=== PATIENT | female | born 1980 | race Caucasian/White ===

== ENCOUNTER 2016-11-28 15:26 | Inpatient (IN) | payer OTHER ==
[~2016-11-28] VITALS: Ht 160 cm; Wt 82.4 kg
[2016-11-28] MEDS ORDERED: PRENAT PO (15:57)
[2016-11-28] MEDS ORDERED: FERR236T PO (15:58)
[2016-11-28 15:59] VITALS: BP 169/102; PULSE 86; RESP 18
--- NOTE | 2016-11-28 16:33 | RADRPT ---
PROCEDURE: US OB biophysical profile. CLINICAL INDICATION: decreased movements, contractions TECHNIQUE: Multiple sonographic images of the pelvis were obtained. The images were reviewed on a PACS workstation. COMPARISON: No prior studies are available for comparison. FINDINGS: There is a single viable intrauterine gestation. Cardiac activity is present with 156 beats per min yurok. There is a vertex presentation. The placenta is fundal. There is no evidence of placental abruption. There is a normal amount of amniotic fluid with an KENN = 11.9 cm. Biophysical profile: movement 2/2 tone 2/2. breathing 2/2 KENN 2/2 Total 03/23 RPTAT: AA . IMPRESSION: Normal biophysical profile. . .Tien Yao MD, Date Time Electronically viewed and signed by .Tien Yao MD, MD on 11/28/2016 16:32 .S/
--- NOTE | 2016-11-28 16:43 | HP ---
Date/Time of Note Date/Time of Note DATE: 11/28/16 TIME: 16:38 OB - History Hx of Present Chief Complaint: Low amniotic fluid as noted on outside ultrasound Last Menstrual Period: Jul 18, 2016 Estimated Due Date: December 24, 2016 : 5 Para: 3 Spontaneous : 1 Therapeutic : 0 Care: Limited Care Ultrasounds: Abnormal US findings (oligohydramnios) Obstetrical Complications: None Medical Complications: None Past Family/Social History * Past Medical, Surgical, Family and Obstetric Histories reviewed from chart. OB Admission Exam Vital Signs Vital Signs Vital Signs Date Time Temp Pulse Resp B/P Pulse Ox O2 Delivery O2 Flow Rate FiO2 11/28/16 15:59 98.5 86 18 169/102 97 Room Air Physical Exam HEENT: WNL Heart: Rhythm Normal Lungs: Clear Abdomen: WNL Extremities: Normal Reflexes: Normal Heart Rate: 140's Accelerations: Accelerations Present Decelerations: No Decelerations Varibility: Moderate OB Assessment/Plan Reason for admission: other (R/O preeclampsia, r/o oligohydramnios) Plan: Other (Admit, 24 hour urine collection, lab work OB ultrasound) SUDHA AUGUST MD Nov 28, 2016 16:43
--- NOTE | 2016-11-28 16:54 | RADRPT ---
PROCEDURE: US OB. CLINICAL INDICATION: Size and dates TECHNIQUE: Multiple sonographic images of the pelvis and gravid uterus were obtained. The images were reviewed on a PACS workstation. COMPARISON: No prior studies are available for comparison. FINDINGS: There is a single viable intrauterine gestation. Cardiac activity is present with 132 beats per min lawrence. There is a vertex presentation. The placenta is fundal. There is no evidence for an abruption or placenta previa. Measurements were made in order to determine age. The results are as follows: BPD =8.8 cm HC =31.5 cm AC =34 cm FL =6.9 cm Estimated gestational age of approximately 36 weeks and 1 day based on ultrasound measurements. Clinical age: 36 weeks and 2 days. The estimated date of delivery is 12/25/16, based on ultrasound measurements. The EFW = 3038 g, 67%, based on LMP age. RPTAT: AA IMPRESSION: Single viable intrauterine gestation of approximately 36 weeks and 1 day based on ultrasound measur ements. .Tien Yao MD, Date Time Electronically viewed and signed by .Tien Yao MD, on 11/28/2016 16:53 .S/
--- NOTE | 2016-11-28 17:27 | TRIAGE ---
OB Triage Datetime Report Generated by CPN: 11/28/2016 17:27 Datetime: 11/28/2016 17:23 Labor Evaluation Frequency: 0 Monitor Mode: External Pattern: Normal: <= 5 Contractions in 10 Minutes Resting Tone [place]: Relaxed Heart Rate FHR Baseline Rate: 135 Monitor Mode: External US FHR Baseline Changes: No Baseline Change Variability: Moderate 6-25 bpm Accelerations: 15X15 Decelerations: None Category: Category I Pain Assessment Pain Scale: 0 Pain Presence: None/Denies Pain Type: N/A Datetime: 11/28/2016 16:41 Monitor Mode: External Quality: Mild Pattern: Normal: <= 5 Contractions in 10 Minutes Resting Tone [place]: Relaxed Contraction Comments: IRRITABILITIES Heart Rate FHR Baseline Rate: 140 FHR Baseline Changes: No Baseline Change Variability: Moderate 6-25 bpm Accelerations: 15X15 Decelerations: None Datetime: 11/28/2016 16:00 Time of Arrival: 11/28/2016 15:20 EGA: 36.2 Arrived By: Ambulatory Arrived From: Dr. Hernández Chief Complaint: LOW KENN PER CLINIC; PT SENT WITHOUT PAPERWORK Movement: Present Contractions: Denies/Absent Rupture of Membranes: Denies Vaginal Bleeding: None Vaginal Discharge: Denies Recent Sexual Intercouse: Denies Abdominal Trauma: Not Applicable (Annotations: Data stored by N on behalf of user) Patient Complaints: None Time Provider Notified: 11/28/2016 16:05 Provider Notified: DR. AUGUST Initial Plan: EFM x2, ADMIT TO 2NE Datetime: 11/28/2016 15:48 Stage of : OB Triage Assessment Type: Triage Maternal Assessment Level of Consciousness: Fully Conscious Headache: Denies Blurred Vision: No Respiratory Effort: Unlabored; Regular Rhythm; Equal Expansion Breath Sounds, Left: Clear and Equal Breath Sounds, Right: Clear and Equal Nausea/Vomiting: Denies RUQ Epigastric Pain: Denies Lower Extremities Edema: None Degree: None Upper Extremities Edema: None Degree: None Facial Edema: None Temperature Route: Oral Fall Risk Assessment History of Falling: (0) No Secondary Diagnosis: (0) No Ambulatory Aid: (0) Bedrest/Nurse Assist IV Therapy: (0) No Gait: (0) Normal/Bedrest/Immobile Mental Status: (0) Oriented to Own Ability Fall Score: 0 Fall Risk Score Definition: No Risk: No action required
[2016-11-28 17:48] LABS: ADD SCAN DIFF NO
[2016-11-28 17:50] LABS: BASOPHILS % 0.3 % (0.0-2.0); EOSINOPHILS # 0.1 10^3/ul (0.0-0.5); EOSINOPHILS % 1.2 % (0.0-7.0); HEMATOCRIT 28.1 % (37.0-47.0); HEMOGLOBIN 8.6 g/dl (12.0-16.0); LYMPHOCYTES # 1.4 10^3/ul (0.8-2.9); LYMPHOCYTES % 19.9 % (15.0-51.0); MEAN CORPUSCULAR HEMOGLOBIN 22.9 pg (29.0-33.0); MEAN CORPUSCULAR HGB CONC 30.6 g/dl (32.0-37.0); MEAN CORPUSCULAR VOLUME 74.7 fl (82.0-101.0); MEAN PLATELET VOLUME 11.8 fl (7.4-10.4); MONOCYTE # 0.7 10^3/ul (0.3-0.9); MONOCYTES % 10.6 % (0.0-11.0); NEUTROPHIL # 4.6 10^3/ul (1.6-7.5); NEUTROPHILS % 67.4 % (39.0-77.0); PLATELET COUNT 160 10^3/UL (140-415); RED BLOOD COUNT 3.76 10^6/ul (4.20-5.40); RED CELL DISTRIBUTION WIDTH 17.6 % (11.5-14.5); WHITE BLOOD COUNT 6.8 10^3/ul (4.8-10.8)
[2016-11-28 17:54] LABS: ADD UMIC YES; URINE BILIRUBIN (Dip) NEGATIVE (NEGATIVE); URINE BLOOD (Dip) NEGATIVE (NEGATIVE); URINE GLUCOSE (Dip) NEGATIVE (NEGATIVE); URINE KETONES (Dip) NEGATIVE (NEGATIVE); URINE LEUKOCYTE ESTERASE (Dip) TRACE (NEGATIVE); URINE NITRITE (Dip) NEGATIVE (NEGATIVE); URINE TOTAL PROTEIN (Dip) NEGATIVE (NEGATIVE); URINE UROBILINOGEN (Dip) 0.2 E.U./dL (0.1-1.0)
[2016-11-28 17:54] LABS: POTASSIUM 3.5 mmol/L (3.5-5.1)
[2016-11-28 17:55] LABS: CREATININE 0.48 mg/dl (0.44-1.00)
[2016-11-28 17:56] LABS: ALBUMIN/GLOBULIN RATIO 0.88; TOTAL PROTEIN 6.4 g/dl (6.1-8.1); URIC ACID 4.6 mg/dl (3.1-7.9)
[2016-11-28 18:14] LABS: URINE COLOR YELLOW (YELLOW)
[2016-11-28 18:17] LABS: BACTERIA,URINE MODERATE; SQUAMOUS EPITHELIAL CELL,UR MODERATE
[2016-11-28 18:18] LABS: URINE RBCS NONE SEEN /HPF (0)
[2016-11-28 19:10] LABS: BARBITURATES Negative (NEGATIVE); BENZODIAZEPINES Negative (NEGATIVE); CANNABINOIDS Negative (NEGATIVE)
[2016-11-28 19:15] LABS: COCAINE Negative (NEGATIVE); OPIATES Negative (NEGATIVE)
[2016-11-29 07:37] LABS: ADD SCAN DIFF NO
[2016-11-29 07:42] LABS: ABNORMAL IP MESSAGE 1; BASOPHILS % 0.3 % (0.0-2.0); EOSINOPHILS # 0.2 10^3/ul (0.0-0.5); EOSINOPHILS % 1.9 % (0.0-7.0); HEMATOCRIT 26.7 % (37.0-47.0); HEMOGLOBIN 8.2 g/dl (12.0-16.0); LYMPHOCYTES # 1.7 10^3/ul (0.8-2.9); MEAN CORPUSCULAR HEMOGLOBIN 23.2 pg (29.0-33.0); MEAN CORPUSCULAR HGB CONC 30.7 g/dl (32.0-37.0); MEAN CORPUSCULAR VOLUME 75.4 fl (82.0-101.0); MONOCYTE # 0.7 10^3/ul (0.3-0.9); MONOCYTES % 8.9 % (0.0-11.0); NEUTROPHIL # 5.4 10^3/ul (1.6-7.5); NEUTROPHILS % 67.4 % (39.0-77.0); PLATELET COUNT 145 10^3/UL (140-415); RED BLOOD COUNT 3.54 10^6/ul (4.20-5.40); RED CELL DISTRIBUTION WIDTH 17.5 % (11.5-14.5)
[2016-11-29 08:10] LABS: ALBUMIN 2.9 g/dl (3.3-4.9)
[2016-11-29 08:11] LABS: POTASSIUM 3.7 mmol/L (3.5-5.1)
[2016-11-29 08:13] LABS: ALBUMIN/GLOBULIN RATIO 0.93; BILIRUBIN,INDIRECT 0.2 mg/dl (0-1.1); BILIRUBIN,TOTAL 0.2 mg/dl (0.2-1.3); CREATININE 0.49 mg/dl (0.44-1.00)
[2016-11-29 08:14] LABS: CALCIUM 8.4 mg/dl (8.4-10.2)
[2016-11-29] MEDS ORDERED: FERROUS GLUCONATE 236 MG PO SCH (09:00)
[2016-11-29] MEDS: MULTIVIT/MIN/FOLATE/IRON/PREN TAB PO SCH (12:51)
--- NOTE | 2016-11-29 15:33 | QN ---
Documentation Comment pt doing well no complained vss exam wnl iup 36 with elevated bp 24 hour pending continue care JAMES SMITH MD Nov 29, 2016 15:33
[2016-11-29 17:38] LABS: SCRET 0.49 mg/dl (0.44-1.00)
[2016-11-29] MEDS ORDERED: MAGNESIUM SULFATE 4 GM/100 ML 100 ML IVPB ONE (19:30)
[2016-11-29] MEDS: LACTATED RINGER'S 1,000 ML IV SCH (20:15)
[2016-11-29] MEDS: MAGNESIUM SULFATE 20 GM/500 ML 500 ML IV SCH (20:29)
[2016-11-29] MEDS ORDERED: LABETALOL 200 MG TAB PO SCH ×2 (21:00)
[2016-11-29] MEDS: LABETALOL 100 MG TAB PO SCH (21:12)
[2016-11-29 21:24] LABS: ADD SCAN DIFF NO
[2016-11-29 21:25] LABS: BASOPHILS % 0.1 % (0.0-2.0); EOSINOPHILS # 0.2 10^3/ul (0.0-0.5); EOSINOPHILS % 2.3 % (0.0-7.0); HEMATOCRIT 28.2 % (37.0-47.0); HEMOGLOBIN 8.7 g/dl (12.0-16.0); LYMPHOCYTES # 1.4 10^3/ul (0.8-2.9); LYMPHOCYTES % 19.2 % (15.0-51.0); MEAN CORPUSCULAR HGB CONC 30.9 g/dl (32.0-37.0); MEAN CORPUSCULAR VOLUME 74.4 fl (82.0-101.0); MEAN PLATELET VOLUME 11.2 fl (7.4-10.4); MONOCYTE # 0.8 10^3/ul (0.3-0.9); MONOCYTES % 11.3 % (0.0-11.0); NEUTROPHIL # 4.9 10^3/ul (1.6-7.5); NEUTROPHILS % 66.4 % (39.0-77.0); PLATELET COUNT 159 10^3/UL (140-415); RED BLOOD COUNT 3.79 10^6/ul (4.20-5.40); RED CELL DISTRIBUTION WIDTH 17.5 % (11.5-14.5); WHITE BLOOD COUNT 7.4 10^3/ul (4.8-10.8)
[2016-11-29 21:37] LABS: INR 0.91; PROTIME 12.3 Sec (12.2-14.2)
[2016-11-29 21:38] LABS: PARTIAL THROMBOPLASTIN TIME 24.7 Sec (25.0-35.0)
[2016-11-29] MEDS: BETAMET NA PHOS/AC(6 MG/ML) 5ML INJ IM SCH (21:40)
[2016-11-29 23:25] LABS: ALBUMIN/GLOBULIN RATIO 0.96; BILIRUBIN,INDIRECT 0.1 mg/dl (0-1.1); BILIRUBIN,TOTAL 0.1 mg/dl (0.2-1.3); CALCIUM 8.6 mg/dl (8.4-10.2); CREATININE 0.55 mg/dl (0.44-1.00); POTASSIUM 3.6 mmol/L (3.5-5.1); TOTAL PROTEIN 6.1 g/dl (6.1-8.1)
[2016-11-30] MEDS: LABETALOL 100 MG TAB PO SCH ×3 (06:00→22:07)
[2016-11-30] MEDS: LACTATED RINGER'S 1,000 ML IV SCH ×2 (06:01→19:04)
[2016-11-30] MEDS: MAGNESIUM SULFATE 20 GM/500 ML 500 ML IV SCH ×2 (06:05→17:06)
[2016-11-30] MEDS: MULTIVIT/MIN/FOLATE/IRON/PREN TAB PO SCH (08:56)
[2016-11-30] MEDS: FERROUS GLUCONATE (EC) 325 MG TAB PO SCH (08:56)
--- NOTE | 2016-11-30 19:50 | QN ---
Documentation Comment No complaint Afebrile VSS BP improved Strip Reactive Continue with present care. Perinatology consult. SUDHA AUGUST MD Nov 30, 2016 19:50
[2016-11-30] MEDS: BETAMET NA PHOS/AC(6 MG/ML) 5ML INJ IM SCH (21:42)
[2016-12-01] MEDS: MAGNESIUM SULFATE 20 GM/500 ML 500 ML IV SCH ×2 (02:39→11:30)
[2016-12-01] MEDS: LABETALOL 100 MG TAB PO SCH ×3 (05:47→22:09)
[2016-12-01] MEDS: LACTATED RINGER'S 1,000 ML IV SCH ×2 (09:06→21:07)
[2016-12-01] MEDS: MULTIVIT/MIN/FOLATE/IRON/PREN TAB PO SCH (09:15)
[2016-12-01] MEDS: FERROUS GLUCONATE (EC) 325 MG TAB PO SCH (09:16)
--- NOTE | 2016-12-01 12:33 | QN ---
Documentation Comment No complaint Afebrile VSS BP improved Strip Reactive D/C magnesium sulfate Perinatology consult. SUDHA AUGUST MD Dec 01, 2016 12:33
--- NOTE | 2016-12-01 14:37 | CONS ---
DATE OF ADMISSION: 11/28/2016 DATE OF CONSULTATION: 12/01/2016 HISTORY OF PRESENT ILLNESS: The patient presented to the hospital from the clinic on the with elevated blood pressure. It was her first visit, and according to her, she would be 1 9 weeks . However, after that ultrasound was done at the clinic, she was diagnosed with a p regnancy at 36 weeks unchanged. Upon arrival, her blood pressures were in the severe range. Howeve r, after the labetalol was started, her blood pressures currently are in the normal to moderate rang e. The baby is reassuring. She does not have any headache, chest pain, nausea, vomiting. Her prio r was complicated with the elevated blood pressure, according to her, she delivered at ter m. ALLERGIES: NONE. PAST MEDIC HISTORY: None. REVIEW OF SYSTEMS: Negative except for what is mentioned above. PHYSICAL EXAMINATION: VITAL SIGNS: Currently blood pressure is 113/69. PHYSICAL EXAMINATION: Deferred. heart tones reassuring, and there is no evidence of contract ions. LABORATORY VALUES: Normal for preeclampsia and her 24-hour urine for protein is 282. IMPRESSION: Intrauterine at 36 weeks and 5 days with severe gestational hypertension. Imp roved with blood pressure medications, currently stable. Poor dating. RECOMMENDATIONS: Given the poor dating and currently stable presentation, the patient can be delive red at 37 weeks as opposed to now; however, delivery at an earlier time is recommended if she does h ave any evidence of GI, neurologic, oliguria, non-reassuring heart tone, or continues to have severe blood pressures despite medication. NICU should be consulted. I spoke to Dr. Gavin and the patient and I answered the questions. Dictated By: SERGEI QUEEN/SUBHA Conf#: [id number] DID#: [id number]
[2016-12-02] MEDS: LABETALOL 100 MG TAB PO SCH ×3 (06:04→22:03)
[2016-12-02] MEDS: FERROUS GLUCONATE (EC) 325 MG TAB PO SCH (08:43)
[2016-12-02] MEDS: MULTIVIT/MIN/FOLATE/IRON/PREN TAB PO SCH (08:43)
[2016-12-02] MEDS: LACTATED RINGER'S 1,000 ML IV SCH (11:27)
[2016-12-02 15:46] LABS: ADD SCAN DIFF NO
[2016-12-02 15:47] LABS: BASOPHILS % 0.4 % (0.0-2.0); EOSINOPHILS # 0.1 10^3/ul (0.0-0.5); EOSINOPHILS % 1.2 % (0.0-7.0); HEMATOCRIT 29.4 % (37.0-47.0); HEMOGLOBIN 8.8 g/dl (12.0-16.0); LYMPHOCYTES # 1.5 10^3/ul (0.8-2.9); MEAN CORPUSCULAR HEMOGLOBIN 23.1 pg (29.0-33.0); MEAN CORPUSCULAR HGB CONC 29.9 g/dl (32.0-37.0); MEAN CORPUSCULAR VOLUME 77.2 fl (82.0-101.0); MEAN PLATELET VOLUME 11.2 fl (7.4-10.4); MONOCYTE # 1.1 10^3/ul (0.3-0.9); MONOCYTES % 13.3 % (0.0-11.0); NEUTROPHIL # 5.5 10^3/ul (1.6-7.5); NEUTROPHILS % 65.8 % (39.0-77.0); NUCLEATED RED BLOOD CELLS% 0.4 /100WBC (0.0-0.0); PLATELET COUNT 159 10^3/UL (140-415); RED BLOOD COUNT 3.81 10^6/ul (4.20-5.40); WHITE BLOOD COUNT 8.3 10^3/ul (4.8-10.8)
[2016-12-02 16:04] LABS: ALBUMIN 3.5 g/dl (3.3-4.9); ALBUMIN/GLOBULIN RATIO 1.09; CALCIUM 9.2 mg/dl (8.4-10.2); CREATININE 0.61 mg/dl (0.44-1.00); TOTAL PROTEIN 6.7 g/dl (6.1-8.1); URIC ACID 4.8 mg/dl (3.1-7.9)
--- NOTE | 2016-12-02 21:54 | QN ---
Documentation Comment No complaint Afebrile VSS Strip reactive Plan: Induction of labor at 37 weeks. SUDHA AUGUST MD Dec 02, 2016 21:54
[2016-12-02] MEDS ORDERED: MAGNESIUM SULFATE 4 GM/100 ML 100 ML IVPB ONE (22:30)
[2016-12-02] MEDS: MAGNESIUM SULFATE 20 GM/500 ML 500 ML IV SCH (23:04)
[2016-12-03] MEDS: LACTATED RINGER'S 1,000 ML IV SCH ×4 (00:02→23:21)
[2016-12-03] MEDS: LABETALOL 100 MG TAB PO SCH ×3 (06:08→22:31)
[2016-12-03] MEDS: MAGNESIUM SULFATE 20 GM/500 ML 500 ML IV SCH ×3 (08:51→23:23)
[2016-12-03 10:04] LABS: INR 0.91; PROTIME 12.3 Sec (12.2-14.2)
[2016-12-03 10:05] LABS: PARTIAL THROMBOPLASTIN TIME 23.7 Sec (25.0-35.0)
[2016-12-03] MEDS: FERROUS GLUCONATE (EC) 325 MG TAB PO SCH (12:36)
[2016-12-03] MEDS: MULTIVIT/MIN/FOLATE/IRON/PREN TAB PO SCH (12:37)
[2016-12-03] MEDS ORDERED: LACTATED RINGER'S 1,000 ML IV SCH (22:17)
[2016-12-03] MEDS ORDERED: OXYTOCIN 30 UNITS/LR 500 ML IV PRN (22:30)
[2016-12-03] MEDS ORDERED: LACTATED RINGER'S 1,000 ML IV PRN (22:30)
[2016-12-03] MEDS ORDERED: CARBOPROST 250 MCG INJ IM PRN (22:30)
[2016-12-03] MEDS ORDERED: LIDOCAINE 1% (MPF) 30 ML INJ INJ PRN (22:30)
[2016-12-03] MEDS ORDERED: BUTORPHANOL 2 MG INJ IV PRN (22:30)
[2016-12-03] MEDS ORDERED: METHYLERGONOVINE 0.2 MG INJ IM PRN (22:30)
[2016-12-03] MEDS ORDERED: MISOPROSTOL 200 MCG TAB PR PRN (22:30)
[2016-12-03] MEDS ORDERED: IBUPROFEN 600 MG TAB PO PRN (22:30)
[2016-12-03] MEDS ORDERED: OXYTOCIN 30 UNITS/LR 500 ML IV SCH ×2 (22:30)
[2016-12-03] MEDS: MISOPROSTOL 25 MCG CAPSULE PO SCH (23:21)
[2016-12-04 00:02] LABS: ADD SCAN DIFF NO
[2016-12-04 00:05] LABS: BASOPHILS % 0.1 % (0.0-2.0); EOSINOPHILS # 0.1 10^3/ul (0.0-0.5); EOSINOPHILS % 1.3 % (0.0-7.0); HEMATOCRIT 30.6 % (37.0-47.0); HEMOGLOBIN 9.1 g/dl (12.0-16.0); LYMPHOCYTES # 1.2 10^3/ul (0.8-2.9); LYMPHOCYTES % 15.9 % (15.0-51.0); MEAN CORPUSCULAR HEMOGLOBIN 22.4 pg (29.0-33.0); MEAN CORPUSCULAR HGB CONC 29.7 g/dl (32.0-37.0); MEAN CORPUSCULAR VOLUME 75.4 fl (82.0-101.0); MEAN PLATELET VOLUME 11.6 fl (7.4-10.4); MONOCYTE # 0.8 10^3/ul (0.3-0.9); NEUTROPHIL # 5.4 10^3/ul (1.6-7.5); NUCLEATED RED BLOOD CELLS% 0.3 /100WBC (0.0-0.0); PLATELET COUNT 171 10^3/UL (140-415); RED BLOOD COUNT 4.06 10^6/ul (4.20-5.40); RED CELL DISTRIBUTION WIDTH 19.6 % (11.5-14.5); WHITE BLOOD COUNT 7.5 10^3/ul (4.8-10.8)
[2016-12-04 00:29] LABS: INR 0.95; PROTIME 12.7 Sec (12.2-14.2)
[2016-12-04 00:30] LABS: PARTIAL THROMBOPLASTIN TIME 23.1 Sec (25.0-35.0)
[2016-12-04] MEDS: LABETALOL HCL 20MG INJ IV PRN ×2 (00:40→02:57)
[2016-12-04] MEDS: MISOPROSTOL 25 MCG CAPSULE PO SCH ×6 (03:39→23:30)
[2016-12-04] MEDS: LABETALOL 100 MG TAB PO SCH ×3 (05:33→22:06)
[2016-12-04] MEDS: MAGNESIUM SULFATE 20 GM/500 ML 500 ML IV SCH ×2 (08:58→18:42)
[2016-12-04] MEDS: LACTATED RINGER'S 1,000 ML IV SCH ×2 (08:58→22:05)
[2016-12-05] MEDS: LACTATED RINGER'S 1,000 ML IV* SCH (02:00)
[2016-12-05] MEDS: MAGNESIUM SULFATE 20 GM/500 ML 500 ML IV SCH ×2 (04:57→15:29)
[2016-12-05] MEDS: LABETALOL 100 MG TAB PO SCH ×3 (05:35→21:53)
[2016-12-05] MEDS ORDERED: OXYTOCIN 30 UNITS/LR 500 ML IV SCH (07:00)
[2016-12-05] MEDS: LACTATED RINGER'S 1,000 ML IV SCH (10:10)
[2016-12-05] MEDS ORDERED: FENTAnyl 2MCG/ML-ROPIV 0.2% 100 ML ONE (15:31)
--- NOTE | 2016-12-05 19:09 | LDN ---
Date/Time of Note Date/Time of Note DATE: 12/05/16 TIME: 19:06 Delivery Summary Weeks of Gestation 37 weeks and 2 days Placenta Delivered: Spontaneously Meconium: none Episiotomy: No Perineal laceration: 0 Laceration repair: Vaginal laceration repaired with 3-0 Vicryl. Anesthesia type: Epidural Estimated blood loss: 400 Sponge & Needle done & correct: Yes All needle counts correct: Yes Any foreign bodies felt in the: No Problems: Delivery Information Sex Sex: male Apgars 1 Minute: 9 5 Minute: 9 Suctioning Nose & mouth suctioned at keara: Yes Delee suction performed: No Umbilical Cord Umbilical cord with: 3 Vessels Cord presentations: no nuchal cord Cord Blood was obtained: Yes Mother & Baby Disposition Disposition Mom & Baby to Maternity; Good: Yes SUDHA AUGUST MD Dec 05, 2016 19:09
[2016-12-05] MEDS: LABETALOL HCL 20MG INJ IV PRN (20:13)
[2016-12-05] MEDS ORDERED: ACETAMINOPHEN 325 MG TAB PO PRN (21:00)
[2016-12-05] MEDS ORDERED: FENTAnyl 2MCG/ML-ROPIV 0.2% 100 ML BAG EPI SCH (21:00)
[2016-12-05] MEDS ORDERED: MISOPROSTOL 200 MCG TAB PR PRN (21:00)
[2016-12-05] MEDS ORDERED: NALOXONE (0.4 MG/ML) INJ IV PRN (21:00)
[2016-12-05] MEDS ORDERED: OXYTOCIN 30 UNITS/LR 500 ML IV PRN (21:00)
[2016-12-05] MEDS ORDERED: WITCH HAZEL/GLYCERIN PAD PR PRN (21:00)
[2016-12-05] MEDS ORDERED: BENZOCAINE 20% 56 ML SPRAY TOP PRN (21:00)
[2016-12-05] MEDS ORDERED: CARBOPROST 250 MCG INJ IM PRN (21:00)
[2016-12-05] MEDS ORDERED: DIBUCAINE 1% 30 GM OINT PR PRN (21:00)
[2016-12-05] MEDS ORDERED: ACETAMINOPHEN/CODEINE #3 TAB PO PRN (21:00)
[2016-12-05 21:15] VITALS: BP 177/87; PULSE 74; RESP 18
[2016-12-05 21:53] VITALS: BP 185/87; PULSE 77; RESP 18
[2016-12-05] MEDS: SENNA/DOCUSATE NA (8.6MG/50MG) TAB PO SCH (21:53)
[2016-12-05 23:00] VITALS: BP 160/75; PULSE 75; RESP 17
[2016-12-05] MEDS: IBUPROFEN 600 MG TAB PO SCH (23:20)
[2016-12-06] VITALS (20 sets, daily range): BP systolic 123–157; BP diastolic 60–80; PULSE 62–76; RESP 17–72
[2016-12-06] MEDS: LACTATED RINGER'S 1,000 ML IV* SCH ×2 (02:27→12:00)
[2016-12-06] MEDS: MAGNESIUM SULFATE 20 GM/500 ML 500 ML IV SCH ×2 (02:33→11:55)
[2016-12-06] MEDS: LABETALOL 100 MG TAB PO SCH ×3 (06:18→21:34)
[2016-12-06] MEDS: IBUPROFEN 600 MG TAB PO SCH ×3 (06:19→18:36)
[2016-12-06 07:53] LABS: ADD SCAN DIFF NO
[2016-12-06 07:57] LABS: BASOPHILS % 0.2 % (0.0-2.0); EOSINOPHILS # 0.1 10^3/ul (0.0-0.5); EOSINOPHILS % 0.9 % (0.0-7.0); HEMATOCRIT 29.4 % (37.0-47.0); HEMOGLOBIN 9.1 g/dl (12.0-16.0); LYMPHOCYTES # 1.2 10^3/ul (0.8-2.9); LYMPHOCYTES % 14.2 % (15.0-51.0); MEAN CORPUSCULAR HEMOGLOBIN 23.3 pg (29.0-33.0); MEAN CORPUSCULAR VOLUME 75.4 fl (82.0-101.0); MEAN PLATELET VOLUME 11.4 fl (7.4-10.4); MONOCYTES % 11.7 % (0.0-11.0); NEUTROPHIL # 6.2 10^3/ul (1.6-7.5); NEUTROPHILS % 72.7 % (39.0-77.0); PLATELET COUNT 157 10^3/UL (140-415); RED CELL DISTRIBUTION WIDTH 19.9 % (11.5-14.5); WHITE BLOOD COUNT 8.6 10^3/ul (4.8-10.8)
[2016-12-06] MEDS: SENNA/DOCUSATE NA (8.6MG/50MG) TAB PO SCH ×3 (09:00→21:33)
--- NOTE | 2016-12-06 14:37 | QN ---
Documentation Comment No complaint Afebrile VSS Fundus Firm Lochia Scant PPD #1 stable Continue present care. SUDHA AUGUST MD Dec 06, 2016 14:37
[2016-12-07] VITALS (14 sets, daily range): BP systolic 140–194; BP diastolic 72–99; PULSE 18–83; RESP 16–70
[2016-12-07] MEDS: IBUPROFEN 600 MG TAB PO SCH ×4 (00:32→17:44)
[2016-12-07] MEDS: LABETALOL 100 MG TAB PO SCH ×2 (05:56→13:50)
[2016-12-07] MEDS ORDERED: DIPHTH/TET/ACEL PERTUSS (ADULT) 0.5 ML VIAL IM* ONE (09:00)
[2016-12-07] MEDS: SENNA/DOCUSATE NA (8.6MG/50MG) TAB PO SCH ×2 (09:00→21:00)
[2016-12-07] MEDS: NIFEdipine (XL) 30 MG TAB PO SCH (13:50)
--- NOTE | 2016-12-07 20:05 | QN ---
Documentation Comment No complaint Afebrile BP elevated Fundus Firm Patient is on Procardia Will add hydralazine. SUDHA AUGUST MD Dec 07, 2016 20:05
[2016-12-08] VITALS (17 sets, daily range): BP systolic 138–166; BP diastolic 69–95; PULSE 70–91; RESP 16–19
[2016-12-08] MEDS: NIFEdipine (XL) 30 MG TAB PO SCH ×3 (00:17→21:01)
[2016-12-08] MEDS: SENNA/DOCUSATE NA (8.6MG/50MG) TAB PO SCH ×2 (09:00→21:01)
--- NOTE | 2016-12-08 21:32 | QN ---
Documentation Comment No complaint Afebrile BP still elevated Fundus Firm Will increase hydralazine to control BP. SUDHA AUGUST MD Dec 08, 2016 21:32
[2016-12-09] VITALS (8 sets, daily range): BP systolic 131–145; BP diastolic 75–91; PULSE 80–100; RESP 17–19
[2016-12-09] MEDS: SENNA/DOCUSATE NA (8.6MG/50MG) TAB PO SCH ×2 (09:00→20:33)
[2016-12-09] MEDS: NIFEdipine (XL) 30 MG TAB PO SCH ×2 (09:04→20:33)
--- NOTE | 2016-12-09 20:20 | DS ---
Date/Time of Note Date/Time of Note DATE: 12/09/16 TIME: 20:19 Obstetrical Discharge Record Final Diagnosis Final Diagnosis: Term delivered Vaginal Delivery Obstetrical Delivery: Spontaneous Complications Preg induced Hypertension Induction: Yes Condition on Discharge Physical Assessment Voiding: Yes Bowel Movement: Yes Breast: Soft, non-tender Fundus: Firm Calf Tenderness: No Patient Condition: Stable SUDHA AUGUST MD Dec 09, 2016 20:20
--- NOTE | 2016-12-09 21:13 | DS ---
DATE OF ADMISSION: 11/28/2016 DATE OF DISCHARGE: 12/09/2016 ADMITTING DIAGNOSES: at 36 weeks with oligohydramnios and preeclampsia. HISTORY: A 36-year-old female, 5, para 3 at admission, para 4 at time of discharge, at 36 w eeks gestation was admitted due to oligohydramnios and elevated blood pressure. Workup revealed pre eclampsia. Recommendation of perinatologist was to keep the patient in hospital and deliver at 37 w eeks. The patient had induction of labor. During the course of labor, the patient was given intrav enous magnesium sulfate for seizure prophylaxis due to elevated blood pressure. The patient had a s pontaneous vaginal delivery on 12/05/2016. After delivery, the patient was kept on intravenous magn esium sulfate for about 24 hours. The patient's blood pressure was noted to be increasing. The pat ient was given Procardia and, later on, the patient was given hydralazine to control her blood press ure. The patient is discharged on day #4 after having had adequate bladder and bowel fun ction and stable blood pressures. CONDITION ON DISCHARGE: Stable. DISCHARGE INSTRUCTIONS: DIET: Regular. ACTIVITIES: Pelvic rest. MEDICATIONS: 1. Procardia-XL 30 mg p.o. b.i.d. 2. Hydralazine 25 mg p.o. q.6h. 3. Continue with vitamins. 4. Ferrous sulfate. FOLLOWUP: In the clinic on 12/10/2016. FINAL DIAGNOSES: 1. Term , delivered vaginally. 2. Preeclampsia with severe features. 3. Mother with single liveborn. Dictated By: SUDHA HOUSE/SUBHA Conf#: [id number] DID#: [id number]
== END 2016-12-09 21:10 | disposition home or self-care (01) | DRG 775 ==
LOC: OBT 15:26 → L-D 15:28 → OBT 16:05 → OBG 16:05 → L-D 12-03 21:31 → PP1 12-05 21:15
PROVIDERS: ADMIT Obstetrics & Gynecology; ATTEND Obstetrics & Gynecology
PROC: 10E0XZZ Delivery of Products of Conception, External Approach (ICD-10-PCS; principal; 2016-12-05)
DX: O71.4 Obstetric high vaginal laceration alone (principal); O41.03X0 Oligohydramnios, third trimester, not applicable or unspecified; O14.14 Severe pre-eclampsia complicating childbirth; Z3A.37 37 weeks gestation of pregnancy; Z37.0 Single live birth
CPT/HCPCS: 62319; 76815; 76818; 80053; 80307; 81001; 81003; 82575; 83735; 84156; 84560; 85025; 85384; 85610; 85730; 86592; 86706; 86850; 86900; 86901; 87340; 88307; 90715; G0463; J0702; J2590; J3010; J3475; J7120

== ENCOUNTER 2017-03-23 07:19 | Day surgery (SDC) | payer OTHER ==
[2017-03-23] VITALS (9 sets, daily range): BP systolic 134–151; BP diastolic 76–87; PULSE 88–100; RESP 11–19; Ht 160 cm; Wt 73.5 kg
[~2017-03-23] VITALS: Ht 160 cm; Wt 73.5 kg
[~2017-03-23 07:19] MED LIST: FERR236T PO; PRENAT PO; SEVOFLURANE 15 MIN ONE; SUGAMMADEX SODIUM 200 MG/2 ML VIAL IV ONE
[2017-03-23] MEDS ORDERED: CEFAZOLIN 2 GM/50 ML (PMX) 50 ML IVPB ONE (07:30)
[2017-03-23] MEDS ORDERED: HYDR-3671 PO (08:03)
[2017-03-23] MEDS ORDERED: NIFE30TA60 PO (08:04)
[2017-03-23] MEDS ORDERED: hydrALAzine 20 MG INJ IV PRN (08:30)
[2017-03-23] MEDS ORDERED: ATROPINE 1 MG/10 ML SYRINGE IV PRN (08:30)
[2017-03-23] MEDS ORDERED: DIPHENHYDRAMINE 50 MG INJ IV PRN (08:30)
[2017-03-23] MEDS ORDERED: HYDROmorphONE (0.2 MG/ML) 10ML SYG IV PRN ×3 (08:30)
[2017-03-23] MEDS ORDERED: morphine (1 MG/ML) 10ML SYRINGE IV PRN ×3 (08:30)
[2017-03-23] MEDS ORDERED: FENTAnyl 50 MCG/ML VIAL IV PRN ×2 (08:30)
[2017-03-23] MEDS ORDERED: ONDANSETRON 4 MG INJ IV PRN ×2 (08:30→12:30)
[2017-03-23] MEDS ORDERED: OXYCODONE/ACETAMINOPHEN (5/325) TAB PO PRN ×3 (08:30→12:30)
[2017-03-23] MEDS ORDERED: MIDAZOLAM 1 MG/ML 2 ML INJ IV PRN (08:30)
[2017-03-23] MEDS ORDERED: LABETALOL HCL 20MG INJ IV PRN (08:30)
[2017-03-23] MEDS ORDERED: EPHEDrine SULFATE 50 MG/5 ML SYG IV PRN (08:30)
[2017-03-23] MEDS ORDERED: MEPERIDINE 25 MG INJ IV PRN (08:30)
[2017-03-23] MEDS ORDERED: ROCURONIUM 50 MG INJ ONE (08:33)
[2017-03-23] MEDS ORDERED: FENTAnyl 50 MCG/ML VIAL ONE (08:33)
[2017-03-23] MEDS ORDERED: NEOSTIGMINE 3 MG/3 ML SYRINGE ONE (08:33)
[2017-03-23] MEDS ORDERED: LIDOCAINE 2% (SDV) 5 ML INJ ONE (08:33)
[2017-03-23] MEDS ORDERED: MIDAZOLAM 1 MG/ML 2 ML INJ ONE (08:33)
[2017-03-23] MEDS ORDERED: GLYCOPYRROLATE 0.4 MG INJ ONE (08:33)
[2017-03-23] MEDS ORDERED: PROPOFOL 20 ML ONE (08:33)
[2017-03-23] MEDS ORDERED: ONDANSETRON 4 MG INJ ONE (08:34)
[2017-03-23] MEDS ORDERED: DEXAMETHASONE 4 MG/ML 1 ML INJ ONE (08:34)
[2017-03-23] MEDS ORDERED: CEFAZOLIN 1 GM INJ ONE (08:35)
[2017-03-23 08:44] LABS: BASOPHILS % 0.4 % (0.0-2.0); EOSINOPHILS # 0.1 10^3/ul (0.0-0.5); EOSINOPHILS % 1.9 % (0.0-7.0); HEMATOCRIT 35.3 % (37.0-47.0); HEMOGLOBIN 11.9 g/dl (12.0-16.0); LYMPHOCYTES # 1.1 10^3/ul (0.8-2.9); LYMPHOCYTES % 22.2 % (15.0-51.0); MEAN CORPUSCULAR HEMOGLOBIN 26.4 pg (29.0-33.0); MEAN CORPUSCULAR HGB CONC 33.7 g/dl (32.0-37.0); MEAN CORPUSCULAR VOLUME 78.4 fl (82.0-101.0); MEAN PLATELET VOLUME 10.8 fl (7.4-10.4); MONOCYTE # 0.8 10^3/ul (0.3-0.9); MONOCYTES % 16.4 % (0.0-11.0); NEUTROPHIL # 2.8 10^3/ul (1.6-7.5); NEUTROPHILS % 58.9 % (39.0-77.0); PLATELET COUNT 202 10^3/UL (140-415); RED CELL DISTRIBUTION WIDTH 15.6 % (11.5-14.5); WHITE BLOOD COUNT 4.8 10^3/ul (4.8-10.8)
[2017-03-23] MEDS ORDERED: LACTATED RINGER'S 1,000 ML IV* ONE (09:00)
[2017-03-23] MEDS ORDERED: BUPIVACAINE 0.25%/EPI (SDV) 10 ML INJ ONE ×2 (10:05→10:31)
--- NOTE | 2017-03-23 10:51 | PREOPHP ---
DATE OF ADMISSION: 03/23/2017 HISTORY OF PRESENT ILLNESS: A 36-year-old female 5 para 4 AB 1, last menstrual period 03/02/2017 is admitted for voluntary sterilization. PAST MEDICAL HISTORY: Hypertension. PAST SURGICAL HISTORY: Unremarkable. ALLERGIES: NO KNOWN ALLERGIES. FAMILY HISTORY: Hypertension. PHYSICAL EXAMINATION: VITAL SIGNS: The patient is afebrile. Vital signs stable. HEENT: Within normal limits. NECK: Within normal limits. CHEST: Within normal limits. ABDOMEN: Soft, nontender, nondistended. PELVIC: Normal. NEUROLOGIC: Within normal limits. EXTREMITIES: Within normal limits. IMPRESSION: Voluntary sterilization. PLAN: Mini-laparotomy and bilateral tubal ligation. Risks, benefits, and alternatives of the procedure were explained to the patient. The patient has been counseled about all of her contraceptive options including all methods of sterilization. It was explained to the patient that with bilateral tubal ligation there is a chance of failure resulting in ectopic and/or intrauterine . After counseling the patient she said she understood and gave informed consent for the procedure. Dictated By: Travis Gavin MD /erin/mikey /Document#: [id number]
[2017-03-23] MEDS ORDERED: LACTATED RINGER'S 1,000 ML IV SCH (12:14)
--- NOTE | 2017-03-23 12:14 | OPR ---
Date/Time of Note Date/Time of Note DATE: 03/23/17 TIME: 12:11 Operative Report Preoperative Diagnosis Voluntary Sterilization Postoperative Diagnosis Same Operation/Procedure Performed Minilaparotomy, Bilateral Tubal Ligation Surgeon: SUDHA AUGUST MD Anesthesia Type: general Estimated Blood Loss: minimal Transfusion Required: no Specimens Portions of right and left Fallopian tubes Grafts/Implants: none Complications: no SUDHA AUGUST MD Mar 23, 2017 12:14
--- NOTE | 2017-03-23 12:27 | OPR ---
DATE OF OPERATION: 03/23/2017 PREOPERATIVE DIAGNOSIS: Voluntary sterilization. POSTOPERATIVE DIAGNOSIS: Same. OPERATION PERFORMED: Mini-laparotomy and bilateral tubal ligation. SURGEON: Dr. Travis Gavin. 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 ANESTHESIA: General. ANESTHESIOLOGIST: Dr. Antony Howe. OPERATIVE PROCEDURE: Patient was taken to the operating room and placed on the operating table in supine position. After adequate general anesthesia was given, the area was prepared and draped in the usual sterile fashion. Using a scalpel, incision was made about 2 fingerbreadths above the symphysis pubis. The incision was carried to the fascia. The fascia was incised and extended bilaterally with the Bovie. Two Ivis's were used to separate the fascia from the muscle. The muscle was dissected down to peritoneum. The peritoneum was secured with 2 pins and incised with Metzenbaum scissors. Upon entering the peritoneal cavity, the right fallopian tube was grasped with a Jorge clamp and followed to its fimbriated end to confirm its identity. Using 0 plain suture ligature at 5 cm segment, the right fallopian tube was doubly ligated. Using Metzenbaum scissors a portion of the right fallopian tube above the ligated area was excised and sent to pathology. The same procedure was repeated on the left fallopian tube. After assuring hemostasis, the peritoneum was closed with 0 Chromic continuous. The fascia was closed with 0 Vicryl continuous. Subcutaneous tissue was reapproximated with 0 Chromic. The skin was closed with edith. ESTIMATED BLOOD LOSS: Minimal. COMPLICATIONS: None. All counts were correct. Dictated By: Travis Gavin MD /erin/micheline /Document#: [id number]
[2017-03-23] MEDS ORDERED: morphine 2 MG INJ IV PRN (12:30)
[2017-03-23] MEDS ORDERED: KETOROLAC 30 MG INJ IV PRN (12:30)
== END 2017-03-23 14:20 | disposition home or self-care (01) ==
LOC: SDS 07:19
PROVIDERS: ATTEND Obstetrics & Gynecology
DX: Z30.2 Encounter for sterilization (principal); I10 Essential (primary) hypertension
CPT/HCPCS: 58600; 84703; 85025; 86900; 86901; 88302; J0690; J2175; J2250; J2405; J3010; Z7512; Z7610; J1100; J2710